=== PATIENT | female | born 1985 ===

== ENCOUNTER 2016-10-09 08:37 | Inpatient (IN) | payer OTHER ==
[~2016-10-09] VITALS: Ht 160.1 cm; Wt 78.2 kg
[2016-11-21] VITALS (18 sets, daily range): BP systolic 107–124; BP diastolic 59–87; PULSE 67–92; TEMP 97.5–98
[2016-11-21] MEDS ORDERED: PRENATAL MVI (10:12)
[2016-11-21] MEDS ORDERED: VITAMIN D31000 I1 PO (10:13)
[2016-11-21 10:26] LABS: BASO # 0.1 (0.0-0.2); BASO % 0.4 % (0.0-2.0); EOS # 0.1 (0.0-0.7); EOS % 0.5 % (0-4.0); GRAN # 11.9 (1.4-6.5); GRAN % 74.2 % (42.2-75.2); HEMATOCRIT 36.6 % (37.0-47.0); HEMOGLOBIN 12.3 g/dl (12.5-16.0); LYMPH # 2.9 (1.2-3.4); LYMPH % 18.3 % (20.0-51.0); MEAN CELL VOLUME 90 fl (80.0-100.0); MEAN CORPUSCULAR HEMOGLOBIN 30 pg (27.0-31.0); MEAN CORPUSCULAR HGB CONC 34 g/dl (33.0-37.0); MEAN PLATELET VOLUME 10.3 fl (7.4-10.4); MONO # 0.9 (0.1-0.6); MONO % 5.5 % (1.7-9.3); PLATELET COUNT 191 K/mm3 (130-400); RED BLOOD COUNT 4.09 M/mm3 (4.10-5.30); REDCELL DISTRIBUTION WIDTH-CV 13.4 % (11.5-14.5); WHITE BLOOD COUNT 16.1 K/mm3 (4.8-10.8)
[2016-11-22 01:21] VITALS: BP 102/64; PULSE 76; TEMP 98.1
[2016-11-22 04:34] VITALS: BP 97/61; PULSE 69; TEMP 97.8
[2016-11-22 07:44] VITALS: BP 116/75; PULSE 52; TEMP 97.4
[2016-11-22 20:10] VITALS: BP 118/79; PULSE 78; TEMP 98.3
[2016-11-23 08:21] VITALS: BP 122/72; PULSE 85; TEMP 98.1
[2016-11-23] MEDS ORDERED: PERCOCET 325 MG1 TA2 PO (09:04)
[2016-11-23] MEDS ORDERED: IBU600 MG PO (09:04)
== END 2016-11-23 11:42 | disposition home or self-care (01) | DRG 766 ==
LOC: LDR 11-21 06:57 → OB 11-21 09:36 → EDSTATUS 11-28 06:55 → LDRO 11-28 08:37
PROVIDERS: Obstetrics & Gynecology
PROC: 10D00Z1 Extraction of Products of Conception, Low, Open Approach (ICD-10-PCS; principal; 2016-11-21)
DX: O34.211 Maternal care for low transverse scar from previous cesarean delivery (principal); N85.8 Other specified noninflammatory disorders of uterus; O34.03 Maternal care for unspecified congenital malformation of uterus, third trimester; Q51.3 Bicornate uterus; Z3A.39 39 weeks gestation of pregnancy; Z37.0 Single live birth
CPT/HCPCS: J0690; J1885; J2270; J2370; J2405; J2550; J2590; J7120